=== PATIENT | female | born 1965 | race Caucasian/White ===

== ENCOUNTER → 2016-02-17 | Outpatient (CLI) | payer BC, OTHER ==
--- NOTE | 2016-02-17 11:03 | DIAGNOSTIC IMAGING REPORT ---
RENAL ULTRASOUND CLINICAL HISTORY: Neurogenic bladder. Urinary tract infection symptoms. Bladder spasm. COMPARISON STUDY: None TECHNIQUE: Sonography of the kidneys and the urinary bladder was performed. FINDINGS: The right kidney measures 11.4 x 5.2 x 5.4 cm and the left measures 11.5 x 5.9 x 6.3 cm. This study is optimized by suboptimal penetration. Renal echogenicity is normal. There is mild renal cortical thinning. There is mild bilateral collecting system dilatation, left greater than right. A Francisco catheter is noted within the urinary bladder. The ureteral jets were nonvisualized. No shadowing calculi were identified. IMPRESSION: 1. Mild bilateral collecting system dilatation, left greater than right. 2. Mild renal cortical thinning. Electronically signed by: Silverio Little M.D. 02/17/2016 11:01 AM
[2016-02-17 12:40] LABS: BLOOD UREA NITROGEN 12 mg/dl (7-18); BUN/CREATININE RATIO 21.8 (10-20); CREATININE 0.56 mg/dl (0.60-1.20)
== END | disposition home or self-care (01) ==
LOC: C.ULTR 09:50
PROVIDERS: ATTEND Urology
DX: G35 Multiple sclerosis (principal); N31.9 Neuromuscular dysfunction of bladder, unspecified; N32.89 Other specified disorders of bladder; R39.9 Unspecified symptoms and signs involving the genitourinary system

== ENCOUNTER → 2016-12-25 | Outpatient (CLI) | payer BC, OTHER | END | disposition home or self-care (01) | LOC: C.LABSPEC 17:20 | PROVIDERS: ATTEND Nurse Practitioner Adult Health | DX: R39.9 Unspecified symptoms and signs involving the genitourinary system (principal) ==